=== PATIENT | male | born 1960 | race Caucasian/White ===

== ENCOUNTER → 2018-06-12 | Outpatient (CLI) | payer OTHER ==
[2018-06-12 12:00] LABS: BASO # 0.1 10^3/uL (0.0-0.2); BASO % 1.1 % (0.0-1.0); EOS # 0.3 10^3/uL (0.0-0.50); EOS % 3.8 % (0.0-3.0); HEMATOCRIT 50.9 % (42.0-52.0); HEMOGLOBIN 16.9 g/dl (13.5-17.5); IMMATURE GRANULOCYTE % 0.2 % (0-3.0); LYMPH % 24.3 % (24.0-44.0); MEAN CORPUSCULAR HEMOGLOBIN 31.1 pg (27.0-33.0); MEAN CORPUSCULAR HGB CONC 33.2 g/dl (32.0-36.5); MEAN CORPUSCULAR VOLUME 93.6 fl (80.0-96.0); MONO # 0.6 10^3/uL (0.0-0.8); MONO % 6.9 % (0.0-5.0); NEUTROPHILS # 5.2 10^3/uL (1.8-7.7); NEUTROPHILS % 63.7 % (36.0-66.0); PLATELET COUNT, AUTOMATED 202 10^3/uL (150-450); RED BLOOD COUNT 5.44 10^6/uL (4.30-6.10); RED CELL DISTRIBUTION WIDTH 12.5 % (11.5-14.5); WHITE BLOOD COUNT 8.2 10^3/uL (4.0-10.0)
[2018-06-12 12:09] LABS: ALBUMIN 3.7 GM/DL (3.2-5.2); ALBUMIN/GLOBULIN RATIO 1.06 (1.00-1.93); ALKALINE PHOSPHATASE 87 U/L (45-117); ALT/SGPT 36 U/L (12-78); ANION GAP 5 MEQ/L (8-16); AST/SGOT 26 U/L (7-37); BILIRUBIN,TOTAL 0.6 MG/DL (0.2-1.0); BLOOD UREA NITROGEN 14 MG/DL (7-18); CALCIUM LEVEL 9.2 MG/DL (8.5-10.1); CARBON DIOXIDE LEVEL 29 MEQ/L (21-32); CHLORIDE LEVEL 107 MEQ/L (98-107); CHOLESTEROL LEVEL 171 MG/DL (<200); CREATININE FOR GFR 0.84 MG/DL (0.70-1.30); GLOMERULAR FILTRATION RATE > 60.0 (>56); GLUCOSE, FASTING 154 MG/DL (70-100); HDL CHOLESTEROL 25 MG/DL (>40); LDL CHOLESTEROL 115 MG/DL (<100); NON-HDL-C 146 MG/DL; POTASSIUM SERUM 4.7 MEQ/L (3.5-5.1); SODIUM LEVEL 141 MEQ/L (136-145); TOTAL PROTEIN 7.2 GM/DL (6.4-8.2); TRIGLYCERIDES LEVEL 154 MG/DL (<150)
[2018-06-12 14:32] LABS: ESTIMATED AVERAGE GLUCOSE 166 MG/DL (60-110); HEMOGLOBIN A1c 7.4 %
[2018-06-13 14:21] LABS: PSA TOTAL 0.6 ng/mL (0.0-4.0)
== END ==
LOC: M WUC 09:38
DX: Z12.5 Encounter for screening for malignant neoplasm of prostate (principal); I10 Essential (primary) hypertension; E11.9 Type 2 diabetes mellitus without complications; E78.5 Hyperlipidemia, unspecified
CPT/HCPCS: 80053

== ENCOUNTER → 2018-10-08 | Outpatient (CLI) | payer MEDICAID ==
[~2018-10-08] MED LIST: COLA100C5 PO; DEXA4TA PO; FLUC10TA PO; GABA-843 PO; GABA600T4 PO; HYDR-3719 PO; KEPP10002 PO; METF10004 PO; ONDA8TAB7 PO; PROC10TA4 PO
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
== END ==
LOC: M ONCR 16:04
PROVIDERS: ATTEND Radiology Radiation Oncology
DX: C34.91 Malignant neoplasm of unspecified part of right bronchus or lung (principal); C79.31 Secondary malignant neoplasm of brain

== ENCOUNTER 2018-10-10 10:41 | Day surgery (SDC) | payer MEDICAID ==
[~2018-10-10] VITALS: Ht 190.5 cm; Wt 112.5 kg
[~2018-10-10 10:41] MED LIST changes: -COLA100C5 PO; -GABA600T4 PO; -ONDA8TAB7 PO; -PROC10TA4 PO
[2018-10-10] MEDS ORDERED: MUPIROCIN 2% OINT 22 GM TUBE TOP ONE (11:30)
[2018-10-10] MEDS ORDERED: ALBUTEROL SULFATE 2.5 MG/0.5 ML INH NEB SOLN As Ordered ONE (12:20)
[2018-10-10] MEDS ORDERED: HumaLOG INSULIN (NovoLOG) PER UNIT As Ordered ONE (12:21)
[2018-10-10] MEDS ORDERED: HumaLOG INSULIN (NovoLOG) PER UNIT SC ONE (12:30)
[2018-10-10] MEDS ORDERED: ALBUTEROL SULFATE 2.5 MG/0.5 ML INH NEB SOLN INH ONE (12:30)
[2018-10-10] MEDS ORDERED: PROPOFOL 200 MG/20 ML VIAL As Ordered ONE ×2 (12:37→14:07)
[2018-10-10] MEDS ORDERED: LIDOCAINE 2% INJ 100 MG/5 ML SDV (FOR ANES.) As Ordered ONE (12:39)
[2018-10-10] MEDS ORDERED: MIDAZOLAM INJ 2 MG/2 ML VIAL (J2250) As Ordered ONE (13:04)
[2018-10-10] MEDS ORDERED: fentaNYL 100 MCG/2 ML INJECTION (J3010) As Ordered ONE (13:05)
[2018-10-10] MEDS ORDERED: LIDOCAINE 1% MDV 20ML VIAL As Ordered ONE (13:07)
[2018-10-10] MEDS ORDERED: BUPIVACAINE LIPOSOME/PF 1.3% 20ML VIAL (13.3MG/ML)(EXPAREL)(C9290 PER1MG) As Ordered ONE (13:07)
[2018-10-10] MEDS ORDERED: HEPARIN SOD (PORCINE) 5000 UNITS/ML VIAL As Ordered ONE (13:07)
[2018-10-10] MEDS ORDERED: fentaNYL 100 MCG/2 ML INJECTION (J3010) IV PRN (14:45)
[2018-10-10] MEDS ORDERED: ONDANSETRON 4MG/2ML VIAL (J2405) IV PRN (14:45)
[2018-10-10] MEDS ORDERED: PERCOCET 5MG/325MG TAB As Ordered ONE (14:53)
[2018-10-10] MEDS ORDERED: PERCOCET 5MG/325MG TAB PO PRN (15:00)
--- NOTE | 2018-10-10 15:02 | REP ---
C-ARM VIEW CHEST: A C-arm view of the chest is performed. There is a right central venous catheter with the tip in the superior vena cava. 24 seconds fluoroscopy time utilized for the procedure. Electronically Signed by Richie White MD 10/10/2018 04:14 P
[2018-10-10 15:30] VITALS: BP 140/74
--- NOTE | 2018-10-10 15:37 | REP ---
Portable chest, post Powbiz-A-Tqsb placement, single AP view, the patient semi upright, 02:27 p.m.: Comparison is from 09:35 a.m. earlier today. There is a right subclavian Qlyqpp-C-Fwbj with the tip at the confluence of the superior vena cava and right atrium in satisfactory location as an interval change. There is no pneumothorax or hemothorax. There is mediastinal widening compatible with mass or adenopathy as previously. Cardiac size is normal for portable positioning. Impression: There has been interval placement of a right subclavian Xzsygd-U-Kkxu as described. There is no pneumothorax or hemothorax. Electronically Signed by Richie Yip MD 10/10/2018 03:29 P
== END 2018-10-10 15:51 | disposition home or self-care (01) ==
LOC: M SDC 10:41
PROVIDERS: ATTEND Thoracic Surgery (Cardiothoracic Vascular Surgery)
DX: C34.12 Malignant neoplasm of upper lobe, left bronchus or lung (principal); Z45.2 Encounter for adjustment and management of vascular access device; I10 Essential (primary) hypertension; E11.9 Type 2 diabetes mellitus without complications; E78.5 Hyperlipidemia, unspecified; G40.909 Epilepsy, unspecified, not intractable, without status epilepticus; Z87.891 Personal history of nicotine dependence; Z79.899 Other long term (current) drug therapy
CPT/HCPCS: 36561; 71045; 76000; C1788; C9290; J0690; J2250; J3010

== ENCOUNTER → 2018-10-10 | Outpatient (CLI) | payer MEDICAID ==
--- NOTE | 2018-10-10 11:00 | REP ---
PA and lateral chest: There are no comparisons. There is mediastinal widening compatible with adenopathy or mass. The lung manriquez are clear. Cardiac size normal. Skeletal structures are unremarkable. Impression: Mediastinal widening compatible with adenopathy or mass. No comparisons. Electronically Signed by Richie Yip MD 10/10/2018 10:53 A
--- NOTE | 2018-10-13 15:04 | RO ---
DATE OF PROCEDURE: 10/10/2018 PREPROCEDURE DIAGNOSES: Metastatic small cell carcinoma, need for vascular access for chemotherapy. POSTPROCEDURE DIAGNOSES: Metastatic small cell carcinoma, need for vascular access for chemotherapy. SURGEON: Dr. Mario Cruz [employer]IL[employer] LABORER: ANESTHESIA: PROCEDURE: Insertion of right subclavian vein PowerPort. DESCRIPTION OF PROCEDURE: Under satisfactory moderate MAC anesthesia, the patient was prepped and draped in the usual sterile fashion. The left subclavian vein was attempted to be found and I could not find it and therefore changed to the other side. The vein on the right was found on the first pass and the wire was passed. Position was confirmed with fluoroscopic control. The proposed port site was infiltrated with Exparel and an incision was made. Subcutaneous pocket was created by use of blunt dissection and by use of electrocautery. The wire tract was incised and dilated and a catheter was placed low numbers down into the right atrium. Tunnel was created from the wire site to the port site and the catheter was pulled through with fluoroscopic control position at the junction of the right atrium and superior vena cava. Catheter was cut to the appropriate size. Collar was placed and the PowerPort was connected to the catheter. The port was then flushed with heparinized saline. The port was then anchored to the chest wall with two #2-0 silk sutures. Final pictures were taken and all contours were smooth. Subcutaneous tissue was closed with running #3-0 Vicryl suture and the skin was close with running Monocryl subcuticular suture. The port was then flushed with a final flush of 100 units/mL.
== END ==
LOC: M SMT 09:22
PROVIDERS: ATTEND Thoracic Surgery (Cardiothoracic Vascular Surgery)
DX: C34.12 Malignant neoplasm of upper lobe, left bronchus or lung (principal)

== ENCOUNTER 2018-10-16 10:14 | Emergency (ER) | payer MEDICAID ==
[~2018-10-16] VITALS: Ht 190.5 cm; Wt 115.9 kg
[2018-10-16] MEDS ORDERED: GABA600T4 PO (11:11)
[2018-10-16 11:14] LABS: BASO % 0.4 % (0.0-1.0); EOS % 0.1 % (0.0-3.0); HEMOGLOBIN 17.7 g/dl (13.5-17.5); LYMPH # 1.2 10^3/uL (1.5-4.5); LYMPH % 10.4 % (24.0-44.0); MEAN CORPUSCULAR HEMOGLOBIN 31.7 pg (27.0-33.0); MEAN CORPUSCULAR HGB CONC 35.4 g/dl (32.0-36.5); MEAN CORPUSCULAR VOLUME 89.6 fl (80.0-96.0); MONO # 0.7 10^3/uL (0.0-0.8); MONO % 6.6 % (0.0-5.0); NEUTROPHILS # 9.1 10^3/uL (1.8-7.7); NEUTROPHILS % 81.2 % (36.0-66.0); PLATELET COUNT, AUTOMATED 163 10^3/uL (150-450); RED BLOOD COUNT 5.58 10^6/uL (4.30-6.10); WHITE BLOOD COUNT 11.2 10^3/uL (4.0-10.0)
[2018-10-16 12:14] LABS: ALBUMIN 3.2 GM/DL (3.2-5.2); ALT/SGPT 51 U/L (12-78); BILIRUBIN,DIRECT 0.2 MG/DL (0.0-0.2); BILIRUBIN,TOTAL 0.9 MG/DL (0.2-1.0); BLOOD UREA NITROGEN 33 MG/DL (7-18); CALCIUM LEVEL 9.8 MG/DL (8.5-10.1); CARBON DIOXIDE LEVEL 24 MEQ/L (21-32); CHLORIDE LEVEL 94 MEQ/L (98-107); CREATININE FOR GFR 0.93 MG/DL (0.70-1.30); GLOMERULAR FILTRATION RATE > 60.0 (>56); GLUCOSE, FASTING 372 MG/DL (70-100); POTASSIUM SERUM 4.9 MEQ/L (3.5-5.1); SODIUM LEVEL 131 MEQ/L (136-145); TOTAL PROTEIN 6.5 GM/DL (6.4-8.2)
[2018-10-16] MEDS ORDERED: ISOVUE-370 76% 100ML VIAL (Q9967) As Ordered ONE (12:20)
[2018-10-16] MEDS ORDERED: NS 1,000 ML IV ONE (12:30)
[2018-10-16] MEDS ORDERED: ANEXSIA, NORCO 7.5MG/325MG TABLET(HYDROCODONE/APAP) PO ONE (13:00)
--- NOTE | 2018-10-16 13:16 | REP ---
CT of the abdomen and pelvis with IV contrast: The patient has a history of lung carcinoma and currently complains of back pain. There is question of esophageal carcinoma. There are no comparison CT studies or plain film studies. Half of the abdomen or pelvis. There are no prior chest CT studies. The visualized lung manriquez are unremarkable. The hepatic parenchyma is homogeneous. The gallbladder, pancreas and spleen are unremarkable. The adrenal glands are diffusely thickened bilaterally compatible with adrenal cortical hyperplasia. No focal adrenal nodules are identified. There are small bilateral renal cortical simple cysts. There is no hydronephrosis. The kidneys are otherwise unremarkable. Abdominal aorta is unremarkable. There is no periaortic adenopathy. There is no wall thickening or mass in the visualized portion of the distal esophagus or esophagogastric junction. The bowel and mesentery are unremarkable. Pelvis: There is no adenopathy, ascites or mass. The bladder is unremarkable. The pelvic bowel loops are unremarkable. There is a large posterior protruding osteophytes in the lumbar spine at L4-5 extending to the right of midline resulting in spinal stenosis at this level. There is an enlarged mesenteric node medial to the tip of the liver measuring up to 16 mm. There is a nm' 8 mm. There are a few other scattered normal size mesenteric nodes. Impression: No esophageal mass or wall thickening is identified in the visualized portion of the distal esophagus or gastroesophageal junction. There is a large posterior protruding osteophyte extending to the right of midline at the 04/05 level of the lumbar spine resulting in spinal stenosis. There is adrenal cortical hyperplasia. There are are too enlarged mesenteric nodes on the right and a few other scattered normal size mesenteric nodes. There is no ascites. No adenopathy otherwise. No bowel distension or obstruction. Electronically Signed by Richie Yip MD 10/16/2018 01:08 P
[2018-10-16] MEDS ORDERED: COLA100C5 PO (13:57)
[2018-10-16 14:00] VITALS: BP 148/82
== END 2018-10-16 14:02 | disposition home or self-care (01) ==
LOC: M ED 10:14
DX: E86.0 Dehydration (principal); R13.10 Dysphagia, unspecified; C34.90 Malignant neoplasm of unspecified part of unspecified bronchus or lung; Z92.3 Personal history of irradiation; M48.061 Spinal stenosis, lumbar region without neurogenic claudication; E25.0 Congenital adrenogenital disorders associated with enzyme deficiency; R59.9 Enlarged lymph nodes, unspecified; Z79.899 Other long term (current) drug therapy
CPT/HCPCS: 36415; 74177; 80048; 80076; 85025; 96360; 99284; Q9967

== ENCOUNTER 2018-10-20 14:59 | Outpatient (RCR) | payer MEDICAID ==
--- NOTE | 2018-10-13 09:47 | RADONC ---
RADIATION ONCOLOGY SIMULATION NOTE DATE: 10/13/2018 CHART NUMBER: [id number] SIMULATION NOTE: Mr. 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 We are planning to treat his brain with palliative intent and to locally control hopefully the multiple metastatic lesions. He was placed in a supine position on the simulation table and a mask was fabricated in order to immobilize the patient on a day-to-day basis. After the completion of the formation of the immobilization device (mask), the patient was scanned at 3 mm images throughout the brain area. He tolerated the procedure well with no significant untoward side effects. I was present during the entire course of the simulation. The patient will subsequently be contoured for external beam radiotherapy treatment planning and treatments will commence thereafter. SHAWNAD
[~2018-10-20 14:59] MED LIST changes: +COLA100C5 PO; +GABA600T4 PO
[2018-10-21] MEDS ORDERED: ONDA8TAB7 PO (08:14)
[2018-10-21] MEDS ORDERED: PROC10TA4 PO (08:14)
--- NOTE | 2018-10-21 09:21 | RADONC ---
RADIATION ONCOLOGY PROGRESS NOTE DATE: 10/20/2018 CHART #: [id number] Mr. Ch is presently at a dose of 1800 cGy to his whole brain and is tolerating treatments quite well at this point with no complaints at this time related to his radiation therapy. He is having no headaches. He does complain of some increasing swelling in his lower extremities and an increase in his blood sugar on steroids. He is presently taking 3 pills a day. The patient is also complaining of back pain. In addition, he has had increasing shortness of breath and difficulty swallowing his pills. Chemotherapy is scheduled to start tomorrow. PHYSICAL EXAMINATION: The patient's skin is in good condition with no evidence or radiation change present. There is no moist or dry desquamation. The remainder of his physical exam remains unchanged. Mr. Ch is tolerating his treatments quite well. A bone scan is scheduled for later this week. I have ordered an MRI be undertaken of his lower mid back to further evaluate his back pain. Chemotherapy is scheduled to start this week as well. In addition, I have decreased his Decadron to 2 pills a day which should help somewhat with his blood sugar issues as well as his lower extremity edema.
[2018-10-21] MEDS ORDERED: GABA-843 PO (10:39)
[2018-10-21] MEDS ORDERED: COLA100C5 PO (10:39)
== END 2018-10-23 ==
LOC: M ONCR 14:59
PROVIDERS: ATTEND Radiology Radiation Oncology
DX: C79.31 Secondary malignant neoplasm of brain (principal); C34.91 Malignant neoplasm of unspecified part of right bronchus or lung

== ENCOUNTER 2018-10-21 06:39 | Inpatient (IN) | payer MEDICAID ==
[~2018-10-21] VITALS: Ht 190.5 cm; Wt 115.7 kg
[2018-10-21 07:10] LABS: BASO % 0.4 % (0.0-1.0); EOS % 0.3 % (0.0-3.0); HEMATOCRIT 48.2 % (42.0-52.0); HEMOGLOBIN 16.9 g/dl (13.5-17.5); LYMPH # 0.7 10^3/uL (1.5-4.5); LYMPH % 8.3 % (24.0-44.0); MEAN CORPUSCULAR HEMOGLOBIN 31.4 pg (27.0-33.0); MEAN CORPUSCULAR HGB CONC 35.1 g/dl (32.0-36.5); MEAN CORPUSCULAR VOLUME 89.4 fl (80.0-96.0); MONO # 0.2 10^3/uL (0.0-0.8); NEUTROPHILS # 6.9 10^3/uL (1.8-7.7); NEUTROPHILS % 87.5 % (36.0-66.0); RED BLOOD COUNT 5.39 10^6/uL (4.30-6.10); WHITE BLOOD COUNT 7.9 10^3/uL (4.0-10.0)
[2018-10-21] MEDS ORDERED: IPRATROPIUM 0.5MG/ALBUTEROL 2.5MG INH SOL UD 3ML (DUONEB)(J7620) NEB ONE (07:15)
[2018-10-21 07:23] LABS: PLATELET COUNT, AUTOMATED 91 10^3/uL (150-450)
[2018-10-21 07:24] LABS: INR 0.97
[2018-10-21 07:29] LABS: ERYTHROCYTE SEDIMENTATION RATE 7 mm/hr (0-20)
[2018-10-21] MEDS ORDERED: NS 1,000 ML IV ONE ×2 (07:30→12:45)
[2018-10-21 07:39] LABS: VENOUS BASE EXCESS 0.9 (-2.0-2.0); VENOUS HCO3 24.1 MEQ/L (23.0-27.0); VENOUS O2 SATURATION 98.9 % (60.0-80.0); VENOUS PARTIAL PRESSURE CO2 34.7 mmHg (38.0-50.0); VENOUS PARTIAL PRESSURE O2 140.2 mmHg (30.0-50.0); VENOUS STANDARD HCO3 25.3 MEQ/L; VENOUS TOTAL CO2 25.2 MEQ/L (24.0-28.0)
[2018-10-21] MEDS ORDERED: ONDANSETRON 4MG/2ML VIAL (J2405) IV ONE (07:45)
[2018-10-21] MEDS ORDERED: MORPHINE 4 MG/ML 1ML VIAL/SYRINGE (J2270) IV PRN ×2 (07:45→14:45)
[2018-10-21 07:50] LABS: ALBUMIN 2.9 GM/DL (3.2-5.2); ALT/SGPT 67 U/L (12-78); BILIRUBIN,DIRECT 0.3 MG/DL (0.0-0.2); BILIRUBIN,TOTAL 1.3 MG/DL (0.2-1.0); BLOOD UREA NITROGEN 19 MG/DL (7-18); CALCIUM LEVEL 8.7 MG/DL (8.5-10.1); CARBON DIOXIDE LEVEL 26 MEQ/L (21-32); CHLORIDE LEVEL 95 MEQ/L (98-107); CPK CREATINE PHOSPHOKINASE 238 U/L (39-308); CREATININE FOR GFR 0.79 MG/DL (0.70-1.30); GLOMERULAR FILTRATION RATE > 60.0 (>56); GLUCOSE, FASTING 282 MG/DL (70-100); POTASSIUM SERUM 4.1 MEQ/L (3.5-5.1); SODIUM LEVEL 132 MEQ/L (136-145); THYROID STIMULATING HORMONE 0.338 uIU/ML (0.358-3.740); THYROXINE (T4) 6.7 UG/DL (4.5-12.0); TOTAL PROTEIN 6.1 GM/DL (6.4-8.2); TROPONIN I 0.02 NG/ML (< 0.10)
--- NOTE | 2018-10-21 08:02 | REP ---
Clinical: Dyspnea. Comparison: 10/10/2018. Findings: Mediastinum and cardiac silhouette are stable with tortuous thoracic aorta again noted. Lung manriquez demonstrate diffuse chronic interstitial changes similar to prior examination. No obvious acute consolidation, effusion, or pneumothorax. Avqfyk-H-Ttrr with tip in the SVC remains stable. A cystic-like area along the periphery of the right upper lung zone appears increased in size when compared to prior. Impression: 1. Chronic changes similar to prior examination without obvious acute consolidation or effusion. 2. Cystic area along the periphery of the right upper lung zone appears increased in size and of uncertain significance or etiology. Electronically Signed by Rubio Syed MD 10/21/2018 07:54 A
[2018-10-21] MEDS ORDERED: ISOVUE-370 76% 100ML VIAL (Q9967) As Ordered ONE (08:06)
[2018-10-21] MEDS ORDERED: PROC10TA4 PO (08:14)
[2018-10-21] MEDS ORDERED: ONDA8TAB7 PO (08:14)
--- NOTE | 2018-10-21 08:28 | REP ---
CT Head without contrast HISTORY: Lung carcinoma COMPARISON: None Areas of decreased attenuation are present in the periventricular white matter. This represents small-vessel ischemic disease. A 4 mm focus of increased attenuation is present in the posteromedial right parietal lobe. This may represent a metastatic lesion. There is no intraparenchymal hemorrhage, acute infarct, or midline shift. The ventricular system and cortical sulci are dilated consistent with minimal volume loss. There is no extra cerebral collection. There is no fracture. The visualized sinuses are clear. IMPRESSION: 1. Small vessel ischemic disease. 2. There is a small 4 mm focus of increased attenuation in the posterior medial right parietal lobe. This may represent a metastatic lesion. Contrast enhanced CT is recommended for further evaluation. 3. Minimal volume loss. Electronically Signed by Sid Cottrell MD 10/21/2018 08:20 A
[2018-10-21] MEDS: GABAPENTIN 300 MG CAP PO SCH ×3 (09:00→20:14)
[2018-10-21] MEDS ORDERED: DOCUSATE SODIUM 100 MG CAP PO SCH (09:00)
[2018-10-21] MEDS: levETIRAcetam 250MG TABLET (KEPPRA) PO SCH ×2 (09:00→20:14)
--- NOTE | 2018-10-21 09:32 | REP ---
Clinical: Shortness of breath with history of small cell carcinoma. Technique: Axial contrast enhanced images from the thoracic inlet to the upper abdomen with multiplanar re-formations using 100 ml Isovue 370 intravenous contrast material. Comparison: None Findings: Examination is significantly limited due to motion artifact and suboptimal enhancement of the pulmonary arterial vasculature as well as significant surrounding pathology. Filling defects in the third order branches to the left lower lobe suggesting pulmonary emboli cannot be excluded. Marked mediastinal and bilateral hilar (right greater than left) adenopathy is appreciated with mass and/or lymph nodes measuring up to 5.1 cm maximal diameter along the right paratracheal mediastinum and right hilum. Multiple bilateral pulmonary nodules and consolidations are appreciated. As example, discrete nodules in the right upper lobe measure up to approximately 2.2 cm maximal diameter (image 41) while scattered lower lobe consolidations measure approximately 5.3 cm maximal diameter in the left base. Solitary cyst in the periphery of the right apex measures 3.9 cm diameter. No pleural effusion. No pneumothorax. Thoracic aorta without aneurysm or dissection. No cardiomegaly. No significant pericardial effusion. Atherosclerotic changes to the coronary arteries noted. Musculoskeletal structures demonstrate degenerative changes without obvious focal lesion. Limited upper abdomen demonstrates bilateral adrenal mass lesions measuring 4.3 x 2.1 cm on the right and greater than 2.7 x 2.3 cm on the left. Impression: 1. Significantly limited examination for pulmonary embolus. However, subtle third order pulmonary emboli to the left lower lobe cannot be excluded. 2. Marked mediastinal and hilar conglomerate adenopathy/mass lesions measuring up to 5.1 cm along with scattered bilateral pulmonary nodules and areas of consolidation consistent with the given history of small cell carcinoma. Superimposed multifocal pneumonia cannot be excluded. 3. Right upper lobe pulmonary cyst / solitary bulla. 4. Bilateral adrenal mass lesions. Electronically Signed by Rubio Syed MD 10/21/2018 09:23 A
[2018-10-21] MEDS ORDERED: GABA-843 PO (10:39)
[2018-10-21] MEDS ORDERED: COLA100C5 PO (10:39)
[2018-10-21] MEDS ORDERED: OSELTAMIVIR PHOSPHATE 75 MG CAP (TAMIFLU) PO ONE (10:45)
[2018-10-21] MEDS ORDERED: ACETAMINOPHEN TAB 650MG DOSE (2X325MG) PO PRN (11:15)
[2018-10-21] MEDS ORDERED: NS 1,000 ML IV SCH (11:15)
[2018-10-21] MEDS ORDERED: IPRATROPIUM 0.5MG/ALBUTEROL 2.5MG INH SOL UD 3ML (DUONEB)(J7620) NEB PRN (11:15)
[2018-10-21] MEDS ORDERED: GLUCOSE 4 GM CHEW TABLET PO PRN (11:15)
[2018-10-21] MEDS ORDERED: GLUCAGON FOR INJ 1 MG VIAL (J1610) SC PRN (11:15)
[2018-10-21] MEDS ORDERED: DEXTROSE 50% 50 ML SYRINGE IV PRN (11:15)
[2018-10-21] MEDS: HumaLOG INSULIN (NovoLOG) PER UNIT SC SCH ×2 (12:00→16:48)
[2018-10-21] MEDS ORDERED: PIPERACILLIN/TAZOBACTAM SOD 3.375 GM in D5W MINI-BAG PLUS 50 ML IV SCH (12:00)
[2018-10-21] MEDS ORDERED: VANCOMYCIN HCL 1,000 MG, VIAL MATE ADAPTER 1 EACH in D5W 250 ML IV ONE ×2 (12:30→16:30)
[2018-10-21] MEDS: IPRATROPIUM 0.5MG/ALBUTEROL 2.5MG INH SOL UD 3ML (DUONEB)(J7620) NEB SCH ×2 (13:38→21:27)
--- NOTE | 2018-10-21 14:19 | HPEPDOC ---
General Date of Admission Oct 21, 2018 at 11:11 Chief Complaint The patient is a 57-year-old male who Presented to ER with complaints of shortn ess of breath History of Present Illness Patient is a 57-year-old male with a PMHx of NIDDM2, HTN, Metastatic small cell lung CA with metastasis to the brain who presented to the ER with complaints of shortness of breath. Currently the last several days. Patient was in the emergency room approximately 3 days ago was treated for dehydration and subsequently sent home. Currently patient denies any chest pain or palpitations. Does note that he experiences a cough with some sputum production. Unable to describe the sputum. However, he notes that the cough is been relatively unchanged. Denies any nausea, vomiting, constipation, diarrhea or discomfort with urination or recent fevers and chills outside the hospital. Patient has been receiving whole brain radiation with Dr. Boggs; has received 5 of 6 sessions. A she was scheduled to receive chemotherapy today, however he presented to the ER instead. Patient has been prophylactically started on dexamethasone and Keppra. Home Medications Scheduled Dexamethasone (Dexamethasone) 4 Mg Tab, 4 MG PO BID, (Reported) Docusate Sodium (Colace) 100 Mg Cap, 100 MG PO BID, (Reported) Gabapentin (Gabapentin) 600 Mg Tab, 600 MG PO TID, (Reported) Gabapentin (Gabapentin) 300 Mg Cap, 300 MG PO TID, (Reported) Levetiracetam (Keppra) 1,000 Mg Tab, 1,000 MG PO BID, (Reported) Metformin Hydrochloride (Metformin HCl) 1,000 Mg Tab, 1,000 MG PO BID, (Reported) Scheduled PRN Acetaminophen/Hydrocodone (Hydrocodone/Acetaminophen 10-325 mg) 1 Tab Tab, 2 TAB PO Q6H PRN for PAIN, (Reported) Allergies Coded Allergies: No Known Allergies (Unverified , 10/08/18) Past Medical History Medical History NIDDM2, HTN, Metastatic small cell lung CA with metastasis to the brain Surgical History No reported surgeries Family History - Noncontributory given advanced age Social History - Denies the use of alcohol or illicit drugs; Quit smoking 3 weeks ago; smoker of 40 years at 1 ppd - Denies recent travel or sick contacts - Lives alone Review of Systems Other systems 10 point review systems complete, all negative otherwise stated in HPI Vital Signs - Vitals: BP 110/78, HR 128, RR 16, Sat 90%NC5L, Temp 99.1F - General: Lying in bed, No acute distress, Speaking in full sentences, Awake / Alert - HEENT: NC, AT, PERRLA, EOMI - CVS: RRR, +S1S2 - Lungs: Fair air entry bilaterally, no appreciable wheezing, rales or rhonchi - Abdomen: Soft, Non-distended, Non-tender - Extremities: Trace edema bilaterally, No calf tenderness - Neuro: No focal motor or sensory deficit - Skin: No visible rashes Laboratory Data Labs 24H Laboratory Tests 2 10/21/18 06:53: Prothrombin Time 13.0, Prothromb Time International Ratio 0.97 10/21/18 06:54: Immature Granulocyte % (Auto) 1.5, White Blood Count 7.9, Red Blood Count 5.39, Hemoglobin 16.9, Hematocrit 48.2, Mean Corpuscular Volume 89.4, Mean Corpuscular Hemoglobin 31.4, Mean Corpuscular Hemoglobin Concent 35.1, Red Cell Distribution Width 11.6, Platelet Count 91L, Neutrophils (%) (Auto) 87.5H, Lymphocytes (%) (Auto) 8.3L, Monocytes (%) (Auto) 2.0, Eosinophils (%) (Auto) 0.3, Basophils (%) (Auto) 0.4, Neutrophils # (Auto) 6.9, Lymphocytes # (Auto) 0.7L, Monocytes # (Auto) 0.2, Eosinophils # (Auto) 0.0, Basophils # (Auto) 0.0, Nucleated Red B lood Cells % (auto) 0.0, Immature Platelet Fraction 3.3, Erythrocyte Sedimentation Rate 7, Anion Gap 11, Glomerular Filtration Rate > 60.0, Calcium Level 8.7, Aspartate Amino Transf (AST/SGOT) 41H, Alanine Aminotransferase (ALT/SGPT) 67, Alkaline Phosphatase 113, Total Bilirubin 1.3H, Direct Bilirubin 0.3H, Ammonia 14, Total Creatine Kinase 238, Creatine Kinase MB 3.0, Creatine Kinase MB Relative Index 1.30, Troponin I 0.02, Total Protein 6.1L, Albumin 2.9L, Albumin/Globulin Ratio 0.91L, Thyroid Stimulating Hormone (TSH) 0.338L, Thyroxine (T4) 6.7 10/21/18 06:55: Lactic Acid Level 2.0 10/21/18 07:22: Blood Gas Bicarbonate Standard 25.3, Venous Blood pH 7.460H, Venous Blood Partial Pressure CO2 34.7L, Venous Blood Partial Pressure O2 140.2H, Venous B lood Total Carbon Dioxide 25.2, Venous Blood HCO3 24.1, Venous Blood Oxygen Saturation 98.9H, Venous Blood Base Excess 0.9 10/21/18 13:02: CBC/BMP Laboratory Tests 10/21/18 06:54 Red Blood Count 5.39, Mean Corpuscular Volume 89.4, Mean Corpuscular Hemoglobin 31.4, Mean Corpuscular Hemoglobin Concent 35.1, Red Cell Distribution Width 11.6, Neutrophils (%) (Auto) 87.5 H, Lymphocytes (%) (Auto) 8.3 L, Monocytes (%) (Auto) 2.0, Eosinophils (%) (Auto) 0.3, Basophils (%) (Auto) 0.4, Neutrophils # (Auto) 6.9, Lymphocytes # (Auto) 0.7 L, Monocytes # (Auto) 0.2, Eosinophils # (Auto) 0.0, Basophils # (Auto) 0.0 Microbiology Microbiology 10/21/18 Blood Culture, Received Pending 10/21/18 Blood Culture, Received Pending 10/21/18 Respiratory Virus Panel (PCR) ([facility]) - Final, Complete Influenza A H1-2009 Respiratory Syncytial Virus Plan / VTE VTE Prophylaxis Ordered?: Yes Plan Plan Acute hypoxic respiratory failure - possibly 2/2 pulmonary embolism, possibly 2/2 HCAP, possibly 2/2 underlying malignancy - Presented to the ER with complaints of shortness of breath and sputum production - Physical does not reveal any adventitious lung sounds - Patient remains afebrile and hemodynamically stable - No significant leukocytosis - Respiratory pane; 10/21: RSV and Influenza A - Will order sputum and blood cultures - CXR 10/21: 1. Chronic changes similar to prior examination without obvious acute consolidation or effusion. 2. Cystic area along the periphery of the right upper lung zone appears increased in size and of uncertain significance or etiology. - CTA chest 10/21: 1. Significantly limited examination for pulmonary embolus. However, subtle third order pulmonary emboli to the left lower lobe cannot be excluded. 2. Marked mediastinal and hilar conglomerate adenopathy/mass lesions measuring up to 5.1 cm along with scattered bilateral pulmonary nodules and areas of consolidation consistent with the given history of small cell carcinoma. Superimposed multifocal pneumonia annot be excluded. 3. Right upper lobe pulm onary cyst / solitary bulla. 4. Bilateral adrenal mass lesions. - Will get V/Q scan and duplex US of LE - Start Vancomycin, Zosyn and Oseltamivir and IV fluid hydration Metastatic small cell lung CA - Metastasis to the brain - Patient has been started on prophylactic Keppra and dexamethasone - Follows with Dr. Ferro as an outpatient NIDDM2 - c/w ISS Neuropathy - c/w Gabapentin HTN - Currently not on medications DVT prophylaxis - Will start Lovenox MIKHAIL KING MD Oct 21, 2018 14:19
[2018-10-21 14:24] LABS: MB/CK RELATIVE INDEX 1.3 (< OR =4); TROPONIN I 0.03 NG/ML (< 0.10)
[2018-10-21] MEDS ORDERED: MORPHINE 4 MG/ML 1ML VIAL/SYRINGE (J2270) IV ONE (14:45)
[2018-10-21 15:30] VITALS: BP 132/80
[2018-10-21] MEDS ORDERED: SCOPOLAMINE 1MG TRANSDERMAL PATCH TOP PRN (17:30)
--- NOTE | 2018-10-21 17:54 | IPNPDOC ---
Text Note Date of Service The patient was seen on 10/21/18. NOTE Update: Patient has indicated that he would likely to speak with his brother in regards to his CODE STATUS. I have called his brother, Dong Ch. He has advised me that he will be arriving to the hospital to discuss further. Upon arrival we discussed the patient's prognosis. He has indicated to me that oncology has noted a <3 month survival. 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 Patient was asked about what he would like to do and he differed the decision to his brother, who has updated the MOLST form to reflect this. 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 Non-essential medications discontinued and symptomatic control started. VS,Fishbone, I+O VS, Fishbone, I+O Laboratory Tests 10/21/18 06:54 Red Blood Count 5.39, Mean Corpuscular Volume 89.4, Mean Corpuscular Hemoglobin 31.4, Mean Corpuscular Hemoglobin Concent 35.1, Red Cell Distribution Width 11.6, Neutrophils (%) (Auto) 87.5 H, Lymphocytes (%) (Auto) 8.3 L, Monocytes (%) (Auto) 2.0, Eosinophils (%) (Auto) 0.3, Basophils (%) (Auto) 0.4, Neutrophils # (Auto) 6.9, Lymphocytes # (Auto) 0.7 L, Monocytes # (Auto) 0.2, Eosinophils # ( Auto) 0.0, Basophils # (Auto) 0.0 Vital Signs Date Time Temp Pulse Resp B/P (MAP) Pulse Ox O2 Delivery O2 Flow Rate FiO2 10/21/18 15:30 100.6 122 26 132/80 (97) 93 6.0 10/21/18 12:20 Nasal Cannula MIKHAIL KING MD Oct 21, 2018 17:54
[2018-10-21] MEDS: MORPHINE 4 MG/ML 1ML VIAL/SYRINGE (J2270) IV PRN ×2 (17:56→22:27)
[2018-10-21] MEDS ORDERED: ENOXAPARIN 120 MG/0.8 ML SYR (J1650) SC SCH (18:00)
[2018-10-21] MEDS ORDERED: HumaLOG INSULIN (NovoLOG) PER UNIT SC SCH (21:00)
[2018-10-21] MEDS ORDERED: OSELTAMIVIR PHOSPHATE 75 MG CAP (TAMIFLU) PO SCH (21:00)
[2018-10-21] MEDS ORDERED: VANCOMYCIN HCL 1,000 MG, VIAL MATE ADAPTER 1 EACH in D5W 250 ML IV SCH (23:00)
[2018-10-22] MEDS: IPRATROPIUM 0.5MG/ALBUTEROL 2.5MG INH SOL UD 3ML (DUONEB)(J7620) NEB SCH ×4 (02:00→20:51)
--- NOTE | 2018-10-22 07:09 | ECGEPIP ---
Stationary ECG Study [facility] Test Date: 2018-10-21 Pat Name: BERNARD RICHTER Department: Room: L1590-70 Gender: M Donation Specialist: CT : 1960 Requested By: MIKHAIL KING Order Number: [id number] Reading MD: David Funes Measurements Intervals [place] Rate: 130 P: 66 NC: 153 QRS: 42 QRSD: 97 T: 60 QT: 293 QTc: 432 Interpretive Statements Considerable baseline artifact Sinus tachycardia Somewhat low voltages Otherwise normal Electronically Signed On 10-22-2018 7:08:55 EST by David Funes
--- NOTE | 2018-10-22 07:45 | REP ---
Duplex extremity venous ultrasound: Bilateral lower extremity. History: Bilateral lower extremity swelling. Findings: The deep veins are anechoic and fully compressible from the groin to the popliteal fossa in the left and right lower extremity. Color flow imaging is homogeneous. Spectral Doppler interrogation demonstrates intact respiratory variation in flow and normal manual augmentation of flow. There is no evidence of deep vein thrombosis. Impression: Negative bilateral lower extremity duplex venous ultrasound. No evidence of deep vein thrombosis. Electronically Signed by Renzo Buchanan MD 10/21/2018 02:22 P
[2018-10-22] MEDS: GABAPENTIN 300 MG CAP PO SCH ×3 (08:41→20:08)
[2018-10-22] MEDS: levETIRAcetam 250MG TABLET (KEPPRA) PO SCH ×2 (08:41→20:08)
[2018-10-22] MEDS ORDERED: ENOXAPARIN 40 MG/0.4 ML SYRINGE (J1650) SC SCH (09:00)
--- NOTE | 2018-10-22 11:15 | IPNPDOC ---
Text Note Date of Service The patient was seen on 10/22/18. 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 Currently the last several days. Patient was in the emergency room approximately 3 days ago was treated for dehydration and subsequently sent home. Currently patient denies any chest pain or palpitations. Patient has been receiving whole brain radiation with Dr. Boggs; has received 5 of 6 sessions. He was scheduled to receive chemotherapy today, however he presented to the ER instead. Patient has been prophylactically started on dexamethasone and Keppra. Patient was seen and examined at the bedside. Currently he notes that he is not in any significant pain. I have advised him that hospice will be speaking with him as soon as possible. Objective: Vitals (See below) General: Lying in bed, no acute distress, comfortable, AAOx3 Full physical exam not done Assessment: Acute hypoxic respiratory failure - possibly 2/2 pulmonary embolism (high suspicion), possibly 2/2 HCAP, possibly 2/2 underlying malignancy Unable to rule out PE Positive influenza Metastatic small cell lung CA NIDDM2 Neuropathy HTN DVT prophylaxis Plan: - Discussed with Brother, Dong Ch and Patient; updated MOLST form to reflect DNR / DNI / HOME INSPECTOR on 10/21/2018 - Non-essential medications discontinued and symptomatic control started VS,Fishbone, I+O VS, Fishbone, I+O Vital Signs Date Time Temp Pulse Resp B/P (MAP) Pulse Ox O2 Delivery O2 Flow Rate FiO2 10/22/18 08:48 6.0 10/21/18 21:29 Nasal Cannula 10/21/18 18:06 22 10/21/18 16:30 99.9 10/21/18 15:30 122 132/80 (97) 93 I&O- Last 24 Hours up to 6 AM 10/22/18 06:00 Intake Total 2060 ml Output Total 150 ml Balance 1910 ml MIHKAIL KING MD Oct 22, 2018 11:15
[2018-10-22] MEDS: MORPHINE 4 MG/ML 1ML VIAL/SYRINGE (J2270) IV PRN ×3 (14:19→20:09)
[2018-10-22] MEDS: OSELTAMIVIR PHOSPHATE 75 MG CAP (TAMIFLU) PO SCH (20:08)
--- NOTE | 2018-10-22 20:17 | ECGEPIP ---
Stationary ECG Study [facility] - ED Test Date: 2018-10-21 Pat Name: BERNARD RICHTER Department: Room: - Gender: M Technical Internship: : 1960 Requested By: Yola Garg Order Number: [id number] Reading MD: Yola Garg Measurements Intervals [place] Rate: 122 P: 61 NC: 155 QRS: 41 QRSD: 86 T: 53 QT: 295 QTc: 422 Interpretive Statements SINUS TACHYCARDIA NSTTW ABNORMALITY BASELINE ARTIFACT LIMIT INTERPRETATION NO PRIOR FOR COMPARISON Electronically Signed On 10-22-2018 20:16:37 EST by Yola Garg
[2018-10-22] MEDS: PERCOCET 5MG/325MG TAB PO PRN (20:56)
[2018-10-23] MEDS: IPRATROPIUM 0.5MG/ALBUTEROL 2.5MG INH SOL UD 3ML (DUONEB)(J7620) NEB SCH ×4 (02:00→20:00)
[2018-10-23] MEDS: GABAPENTIN 300 MG CAP PO SCH ×3 (08:44→20:17)
[2018-10-23] MEDS: MORPHINE 4 MG/ML 1ML VIAL/SYRINGE (J2270) IV PRN ×5 (08:44→23:29)
[2018-10-23] MEDS: levETIRAcetam 250MG TABLET (KEPPRA) PO SCH ×2 (08:44→20:17)
[2018-10-23] MEDS: OSELTAMIVIR PHOSPHATE 75 MG CAP (TAMIFLU) PO SCH ×2 (08:44→20:17)
--- NOTE | 2018-10-23 12:18 | IPNPDOC ---
Text Note Date of Service The patient was seen on 10/23/18. 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 Currently the last several days. Patient was in the emergency room approximately 3 days ago was treated for dehydration and subsequently sent home. Currently patient denies any chest pain or palpitations. Patient has been receiving whole brain radiation with Dr. Boggs; has received 5 of 6 sessions. He was scheduled to receive chemotherapy today, however he presented to the ER instead. Patient has been prophylactically started on dexamethasone and Keppra. Patient was seen and examined at the bedside. Currently patient has no new complaints. He is anxious to get to hospice house. Objective: Vitals (See below) General: Lying in bed, no acute distress, comfortable, AAOx3 Full physical exam not done Assessment: Acute hypoxic respiratory failure - possibly 2/2 pulmonary embolism (high suspicion), possibly 2/2 HCAP, possibly 2/2 underlying malignancy Unable to rule out PE Positive influenza Metastatic small cell lung CA NIDDM2 Neuropathy HTN DVT prophylaxis Plan: - Discussed with Brother, Dong Ch and Patient; updated MOLST form to reflect DNR / DNI / PRODUCTION MANAGER on 10/21/2018 - Non-essential medications discontinued and symptomatic control started - Patient will be continued with Oseltamivir (Day #2) in order to be transitioned to Hospice house at the request of patient / family VS,Fishbone, I+O VS, Fishbone, I+O Vital Signs Date Time Temp Pulse Resp B/P (MAP) Pulse Ox O2 Delivery O2 Flow Rate FiO2 10/23/18 08:50 6.0 10/21/18 21:29 Nasal Cannula 10/21/18 18:06 22 10/21/18 16:30 99.9 10/21/18 15:30 122 132/80 (97) 93 I&O- Last 24 Hours up to 6 AM 10/23/18 06:00 Intake Total 3090 ml Output Total 2425 ml Balance 665 ml MIKHAIL KING MD Oct 23, 2018 12:18
[2018-10-23] MEDS: PERCOCET 5MG/325MG TAB PO PRN ×2 (15:19→21:19)
[2018-10-24] MEDS: IPRATROPIUM 0.5MG/ALBUTEROL 2.5MG INH SOL UD 3ML (DUONEB)(J7620) NEB SCH ×4 (01:08→20:48)
[2018-10-24] MEDS: PERCOCET 5MG/325MG TAB PO PRN ×3 (05:14→20:10)
[2018-10-24] MEDS: GABAPENTIN 300 MG CAP PO SCH ×3 (09:32→20:09)
[2018-10-24] MEDS: levETIRAcetam 250MG TABLET (KEPPRA) PO SCH ×2 (09:32→20:09)
[2018-10-24] MEDS: OSELTAMIVIR PHOSPHATE 75 MG CAP (TAMIFLU) PO SCH ×2 (09:33→20:09)
[2018-10-24] MEDS: MORPHINE 4 MG/ML 1ML VIAL/SYRINGE (J2270) IV PRN (11:57)
--- NOTE | 2018-10-24 13:25 | IPNPDOC ---
Text Note Date of Service The patient was seen on 10/24/18. 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 Currently the last several days. Patient was in the emergency room approximately 3 days ago was treated for dehydration and subsequently sent home. Currently patient denies any chest pain or palpitations. Patient has been receiving whole brain radiation with Dr. Boggs; has received 5 of 6 sessions. He was scheduled to receive chemotherapy today, however he presented to the ER instead. Patient has been prophylactically started on dexamethasone and Keppra. Patient was seen and examined at the bedside. He is concerned that he is taking a lot of time together transition to hospice house given that he has to clear his influenza infection first. Patient denies any chest pain or cough. Denies nausea, vomiting or any significant pain. Objective: Vitals (See below) General: Lying in bed, no acute distress, comfortable, AAOx3 Full physical exam not done Assessment: Acute hypoxic respiratory failure - possibly 2/2 pulmonary embolism (high suspicion), possibly 2/2 HCAP, possibly 2/2 underlying malignancy Unable to rule out PE Positive influenza Metastatic small cell lung CA NIDDM2 Neuropathy HTN DVT prophylaxis Plan: - Discussed with Brother, Dong Ch and Patient; updated MOLST form to reflect DNR / DNI / GUN CLUB MANAGER on 10/21/2018 - Non-essential medications discontinued and symptomatic control started - Patient will be continued with Oseltamivir (Day #4) in order to be transitioned to Hospice house at the request of patient / family VS,Joel, I+O VS, Ante, I+O Vital Signs Date Time Temp Pulse Resp B/P (MAP) Pulse Ox O2 Delivery O2 Flow Rate FiO2 10/24/18 11:57 18 6.0 10/21/18 21:29 Nasal Cannula 10/21/18 16:30 99.9 10/21/18 15:30 122 132/80 (97) 93 I&O- Last 24 Hours up to 6 AM 10/24/18 06:00 Intake Total 3800 ml Output Total 3700 ml Balance 100 ml MIKHAIL KING MD Oct 24, 2018 13:25
[2018-10-25] MEDS: IPRATROPIUM 0.5MG/ALBUTEROL 2.5MG INH SOL UD 3ML (DUONEB)(J7620) NEB SCH ×4 (01:36→20:00)
[2018-10-25] MEDS: PERCOCET 5MG/325MG TAB PO PRN ×4 (02:03→22:58)
[2018-10-25] MEDS: MORPHINE 4 MG/ML 1ML VIAL/SYRINGE (J2270) IV PRN (06:40)
[2018-10-25] MEDS: GABAPENTIN 300 MG CAP PO SCH ×3 (08:56→20:23)
[2018-10-25] MEDS: OSELTAMIVIR PHOSPHATE 75 MG CAP (TAMIFLU) PO SCH ×2 (08:56→20:24)
[2018-10-25] MEDS: levETIRAcetam 250MG TABLET (KEPPRA) PO SCH ×2 (08:58→20:23)
--- NOTE | 2018-10-25 13:16 | IPNPDOC ---
Text Note Date of Service The patient was seen on 10/25/18. 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 Currently the last several days. Patient was in the emergency room approximately 3 days ago was treated for dehydration and subsequently sent home. Currently patient denies any chest pain or palpitations. Patient has been receiving whole brain radiation with Dr. Boggs; has received 5 of 6 sessions. He was scheduled to receive chemotherapy today, however he presented to the ER instead. Patient has been prophylactically started on dexamethasone and Keppra. Patient was seen and examined at the bedside. Clinically patient is doing well. He denies any problems overnight. Is seen sitting up and using his tablet device. Objective: Vitals (See below) General: Lying in bed, no acute distress, comfortable, AAOx3 Full physical exam not done Assessment: Acute hypoxic respiratory failure - possibly 2/2 pulmonary embolism (high suspicion), possibly 2/2 HCAP, possibly 2/2 underlying malignancy Unable to rule out PE Positive influenza Metastatic small cell lung CA NIDDM2 Neuropathy HTN DVT prophylaxis Plan: - Discussed with Brother, Dong Ch and Patient; updated MOLST form to reflect DNR / DNI / HUB ASSOCIATE on 10/21/2018 - Non-essential medications discontinued and symptomatic control started - Patient will be continued with Oseltamivir (Day #5) in order to be transitioned to Hospice house at the request of patient / family - Anticipate, position to hospice house on Saturday VS,Joel, I+O VS, Chinobone, I+O Vital Signs Date Time Temp Pulse Resp B/P (MAP) Pulse Ox O2 Delivery O2 Flow Rate FiO2 10/25/18 12:45 16 10/25/18 09:08 3.0 10/25/18 06:40 92 10/21/18 21:29 Nasal Cannula 10/21/18 16:30 99.9 10/21/18 15:30 122 132/80 (97) I&O- Last 24 Hours up to 6 AM 10/25/18 06:00 Intake Total 3990 ml Output Total 950 ml Balance 3040 ml MIKHAIL KING MD Oct 25, 2018 13:16
[2018-10-26] MEDS: MORPHINE 4 MG/ML 1ML VIAL/SYRINGE (J2270) IV PRN ×6 (00:43→23:22)
[2018-10-26] MEDS: IPRATROPIUM 0.5MG/ALBUTEROL 2.5MG INH SOL UD 3ML (DUONEB)(J7620) NEB SCH ×4 (01:32→19:23)
[2018-10-26] MEDS: OSELTAMIVIR PHOSPHATE 75 MG CAP (TAMIFLU) PO SCH ×2 (09:24→20:05)
[2018-10-26] MEDS: levETIRAcetam 250MG TABLET (KEPPRA) PO SCH ×2 (09:24→20:06)
[2018-10-26] MEDS: GABAPENTIN 300 MG CAP PO SCH ×3 (09:24→20:06)
[2018-10-26] MEDS: PERCOCET 5MG/325MG TAB PO PRN ×2 (10:06→16:02)
--- NOTE | 2018-10-26 12:43 | IPNPDOC ---
Text Note Date of Service The patient was seen on 10/26/18. 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 Currently the last several days. Patient was in the emergency room approximately 3 days ago was treated for dehydration and subsequently sent home. Currently patient denies any chest pain or palpitations. Patient has been receiving whole brain radiation with Dr. Boggs; has received 5 of 6 sessions. He was scheduled to receive chemotherapy today, however he presented to the ER instead. Patient has been prophylactically started on dexamethasone and Keppra. Patient was seen and examined at the bedside. Patient is getting anxious about getting to hospice house. He reports his pain is a little uncontrolled and is requesting more morphine. Objective: Vitals (See below) General: Lying in bed, no acute distress, comfortable, AAOx3 Full physical exam not done Assessment: Acute hypoxic respiratory failure - possibly 2/2 pulmonary embolism (high suspicion), possibly 2/2 HCAP, possibly 2/2 underlying malignancy Unable to rule out PE Positive influenza Metastatic small cell lung CA NIDDM2 Neuropathy HTN DVT prophylaxis Plan: - Discussed with Brother, Dong Ch and Patient; updated MOLST form to reflect DNR / DNI / UMBRELLA CUTTER on 10/21/2018 - Non-essential medications discontinued and symptomatic control started - Will increase dose of morphine at the patient's request for pain control - Patient will be continued with Oseltamivir (Day #6) in order to be transiti oned to Hospice house at the request of patient / family - Test date of discharge is tomorrow; transition to hospice VS,Fishbone, I+O VS, Fishbone, I+O Vital Signs Date Time Temp Pulse Resp B/P (MAP) Pulse Ox O2 Delivery O2 Flow Rate FiO2 10/26/18 10:51 16 10/26/18 10:41 2.0 10/25/18 06:40 92 10/21/18 21:29 Nasal Cannula 10/21/18 16:30 99.9 10/21/18 15:30 122 132/80 (97) I&O- Last 24 Hours up to 6 AM 10/26/18 06:00 Intake Total 1380 ml Output Total 0 ml Balance 1380 ml MIKHAIL KING MD Oct 26, 2018 12:43
[2018-10-26] MEDS: LORazepam 2 MG/ML VIAL (J2060) IV PRN ×2 (20:05→23:17)
[2018-10-27] MEDS: LORazepam 2 MG/ML VIAL (J2060) IV PRN ×5 (01:32→11:29)
[2018-10-27] MEDS: MORPHINE 4 MG/ML 1ML VIAL/SYRINGE (J2270) IV PRN ×5 (01:34→11:29)
[2018-10-27] MEDS: IPRATROPIUM 0.5MG/ALBUTEROL 2.5MG INH SOL UD 3ML (DUONEB)(J7620) NEB SCH ×3 (05:34→14:00)
[2018-10-27] MEDS: GABAPENTIN 300 MG CAP PO SCH (09:00)
[2018-10-27] MEDS: OSELTAMIVIR PHOSPHATE 75 MG CAP (TAMIFLU) PO SCH (09:00)
[2018-10-27] MEDS: levETIRAcetam 250MG TABLET (KEPPRA) PO SCH (09:00)
--- NOTE | 2018-10-27 15:07 | DS.PDOC ---
Discharge Summary General Date of Admission Oct 21, 2018 at 11:11 Date of Discharge 10/27/2018 Discharge Summary PROCEDURES PERFORMED DURING STAY: [None]. 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 Currently the last several days. Patient was in the emergency room approximately 3 days ago was treated for dehydration and subsequently sent home. Currently patient denies any chest pain or palpitations. Patient has been receiving whole brain radiation with Dr. Boggs; has received 5 of 6 sessions. He was scheduled to receive chemotherapy today, however he presented to the ER instead. Patient has been prophylactically started on dexamethasone and Keppra. On 10/21/2018 I had a discussion with the brother, Dong Ch as well as the patient. , It was decided that the patient will be made comfort measures given his poor prognosis from small cell lung cancer and the poor life expectancy given by his oncologist. Patient's medications were adjusted; nonessential medications were discontinued and medications for comfort only were started. Patient ultimately on 10/27/2018 at 1:50PM. DISCHARGE MEDICATIONS: Please see below. ALLERGIES: Please see below. PHYSICAL EXAMINATION ON DISCHARGE: Vitals (See below) General: Lying in bed, no acute distress, comfortable, AAOx3 Full physical exam not done LABORATORY DATA: Please see below. DISPOSITION: TIME SPENT ON DISCHARGE: Greater than 25 minutes. Vital Signs/I&Os Vital Signs Date Time Temp Pulse Resp B/P (MAP) Pulse Ox O2 Delivery O2 Flow Rate FiO2 10/27/18 09:00 2.0 10/27/18 08:57 22 10/25/18 06:40 92 10/21/18 21:29 Nasal Cannula 10/21/18 16:30 99.9 10/21/18 15:30 122 132/80 (97) I&O- Last 24 Hours up to 6 AM 10/27/18 06:00 Intake Total 1860 ml Output Total 1500 ml Balance 360 ml Microbiology Microbiology 10/21/18 Blood Culture - Final, Complete NO GROWTH AFTER 5 DAYS 10/21/18 Blood Culture - Final, Complete NO GROWTH AFTER 5 DAYS 10/21/18 MRSA Screen - Final, Complete 10/21/18 Respiratory Virus Panel (PCR) ([facility]) - Final, Complete Influenza A H1-2009 Respiratory Syncytial Virus Discharge Medications Scheduled Dexamethasone (Dexamethasone) 4 Mg Tab, 4 MG PO BID, (Reported) Docusate Sodium (Colace) 100 Mg Cap, 100 MG PO BID, (Reported) Gabapentin (Gabapentin) 600 Mg Tab, 600 MG PO TID, (Reported) Gabapentin (Gabapentin) 300 Mg Cap, 300 MG PO TID, (Reported) Levetiracetam (Keppra) 1,000 Mg Tab, 1,000 MG PO BID, (Reported) Metformin Hydrochloride (Metformin HCl) 1,000 Mg Tab, 1,000 MG PO BID, (Reported) Scheduled PRN Acetaminophen/Hydrocodone (Hydrocodone/Acetaminophen 10-325 mg) 1 Tab Tab, 2 TAB PO Q6H PRN for PAIN, (Reported) Ondansetron HCl (Ondansetron HCl) 8 Mg Tab, 8 MG PO Q8HP PRN for NAUSEA Prochlorperazine Maleate (Prochlorperazine Maleate) 10 Mg Tab, 10 MG PO Q8HP PRN for NAUSEA Allergies Coded Allergies: No Known Allergies (Unverified , 10/08/18) MIKHAIL KING MD Oct 27, 2018 15:07
== END 2018-10-27 13:50 | disposition expired | DRG 134 ==
LOC: M ED 06:39 → M ED INP 11:11 → M PCU 15:09 → M MSPAV 18:41
PROVIDERS: ADMIT Internal Medicine; ATTEND Internal Medicine
DX: I26.99 Other pulmonary embolism without acute cor pulmonale (principal); J96.01 Acute respiratory failure with hypoxia; J10.00 Influenza due to other identified influenza virus with unspecified type of pneumonia; J18.9 Pneumonia, unspecified organism; B97.4 Respiratory syncytial virus as the cause of diseases classified elsewhere; C79.31 Secondary malignant neoplasm of brain; C34.90 Malignant neoplasm of unspecified part of unspecified bronchus or lung; E11.40 Type 2 diabetes mellitus with diabetic neuropathy, unspecified; I10 Essential (primary) hypertension; Z51.5 Encounter for palliative care; Z66 Do not resuscitate; Z79.84 Long term (current) use of oral hypoglycemic drugs; Z87.891 Personal history of nicotine dependence; Z79.899 Other long term (current) drug therapy